=== PATIENT | male | born 1980 | race Caucasian/White ===

== ENCOUNTER 2017-08-08 20:29 | Emergency (ER) | payer BC, SELFPAY ==
[2017-08-08 21:09] VITALS: BP 129/70; PULSE 74; RESP 20; TEMP 36.6; O2SAT 98; BMI 49.1
--- NOTE | 2017-08-08 21:13 | HMH.EDUTC ---
[facility] [place] Impression: Gastroenteritis Disposition: Home, Self-Care Condition on Discharge: Good Instructions: Viral Gastroenteritis, DI for Viral Gastroenteritis -- Adult Additional Instructions: ? Drink extra fluids with and between meals. If you have difficulty drinking, try very small amounts of water or suck on ice chips. ? Avoid fruit juices, as these do not replace minerals and can actually increase diarrhea. ? Children and adults can use sports drinks to replenish electrolytes. Younger children and infants should use products formulated for children, like oral rehydration solutions. ? Eat food in small amounts and let your stomach recover. ? Get lots of rest. You may feel tired or weak. ? Check with your doctor before taking medications or giving them to children. Never give aspirin to children or teenagers with a viral illness. This can cause Michele syndrome, a potentially life-threatening condition. Prescriptions: Ondansetron [Zofran 4mg ODT] 4 mg PO Q8H #20 tab.rapdis Medical Decision Making Vital Signs: 08/08/17 21:09 Temperature 97.8 F Temperature Source Temporal Artery Scan Pulse Rate [Brachial] 74 Respiratory Rate 20 Blood Pressure [Left Arm] 129/70 Blood Pressure Mean [Left Arm] 89 Blood Pressure Source [Left Arm] Automatic Cuff Blood Pressure Position [Left Arm] Sitting 02 Sat by Pulse Oximetry 98 Oxygen Delivery Method Room Air - Ramirez Inquiry Pt receiving controlled substance: No Ramirez was queried for this patient: No [facility] [place] - General Stated complaint: vomiting, diarrhea Mode of Arrival: Ambulatory Source of Information: Patient Limitations: No Limitations Description of Symptoms (Recalled from Triage Doc. by RN): FLU SYMPTOMS AND DIARRHEA HEENT Symptoms (Recalled from RN notes): Yes Resp Symptoms (Recalled from RN notes): No Skin Symptoms (Recalled from RN notes): No MS Symptoms (Recalled from RN notes): No Functional Status (Recalled from RN notes): NA - History of Present Illness Provider Complaint: Patient state that he began having nausea and vomiting States that he feels like he may be running a low grade fever States that as the day day went on state that his symptoms did not improve State that several people at work has been out with the flu and stomach virus States that he has had several eppisodes of nausea and vomiting but not having abdominal pain - Related Data Home Medications Medication Instructions Recorded Confirmed Gabapentin [Gabapentin 300mg Cap] 300 mg PO TID 08/08/17 08/08/17 Previous Rx's Medication Instructions Recorded Ondansetron [Zofran 4mg ODT] 4 mg PO Q8H #20 tab.[email or web address] 08/08/17 Allergies Allergy/AdvReac Type Severity Reaction Status Date / Time NSAIDS (Non-Steroidal Allergy Intermediate Verified 08/08/17 21:13 Anti-Inflamma [NSAIDS (NON-STEROIDAL ANTI-INFLAMMA] - Worker's Comp Is this a Worker's Comp case?: No [facility] History I have reviewed the patient's past medical history: Yes Laterality Cases: Right: Total Knee Replacement, Bilateral: Other - *Social History Smoking Status: Never smoker Alcohol Intake: never - Psychiatric History Expresses thoughts of harming self/others: None Suicide Plan Description: No Plan ROS Obtained: Yes All systems reviewed & no additional complaints Physical Exam - General General appearance: alert, in no apparent distress - ENT ENT exam: Present: normal exam, normal oropharynx, mucous membranes moist, TM's normal bilaterally, normal external ear exam - Respiratory Respiratory exam: Present: normal lung sounds bilaterally. Absent: respiratory distress - Cardiovascular Cardiovascular exam: Present: regular rate, normal rhythm. Absent: JVD - Abdominal Exam Abdominal exam: Present: soft. Absent: distention, tenderness, guarding, rebound - Neurological Exam Neurological exam: Present: alert, oriented X3
--- NOTE | 2017-08-08 21:21 | ED_ITS ---
[facility] [place] Clinical Impression: Gastroenteritis Disposition: Home, Self-Care Condition on Discharge: Good Instructions: Viral Gastroenteritis, DI for Viral Gastroenteritis -- Adult Additional Instructions: ? Drink extra fluids with and between meals. If you have difficulty drinking, try very small amounts of water or suck on ice chips. ? Avoid fruit juices, as these do not replace minerals and can actually increase diarrhea. ? Children and adults can use sports drinks to replenish electrolytes. Younger children and infants should use products formulated for children, like oral rehydration solutions. ? Eat food in small amounts and let your stomach recover. ? Get lots of rest. You may feel tired or weak. ? Check with your doctor before taking medications or giving them to children. Never give aspirin to children or teenagers with a viral illness. This can cause Yodit?s syndrome, a potentially life-threatening condition. Prescriptions: Ondansetron [Zofran 4mg ODT] 4 mg PO Q8H #20 tab.rapdis Medical Decision Making Vital Signs: 08/08/17 21:09 Temperature 97.8 F Temperature Source Temporal Artery Scan Pulse Rate [Brachial] 74 Respiratory Rate 20 Blood Pressure [Left Arm] 129/70 Blood Pressure Mean [Left Arm] 89 Blood Pressure Source [Left Arm] Automatic Cuff Blood Pressure Position [Left Arm] Sitting 02 Sat by Pulse Oximetry 98 Oxygen Delivery Method Room Air - Ramirez Inquiry Pt receiving controlled substance: No Ramirez was queried for this patient: No [facility] [place] - General Stated complaint: vomiting, diarrhea Mode of Arrival: Ambulatory Source of Information: Patient Limitations: No Limitations Description of Symptoms (Recalled from Triage Doc. by RN): FLU SYMPTOMS AND DIARRHEA HEENT Symptoms (Recalled from RN notes): Yes Resp Symptoms (Recalled from RN notes): No Skin Symptoms (Recalled from RN notes): No MS Symptoms (Recalled from RN notes): No Functional Status (Recalled from RN notes): NA - History of Present Illness Provider Complaint: Patient state that he began having nausea and vomiting States that he feels like he may be running a low grade fever States that as the day day went on state that his symptoms did not improve State that several people at work has been out with the flu and stomach virus States that he has had several eppisodes of nausea and vomiting but not having abdominal pain - Related Data Home Medications Medication Instructions Recorded Confirmed Gabapentin [Gabapentin 300mg Cap] 300 mg PO TID 08/08/17 08/08/17 Previous Rx's Medication Instructions Recorded Ondansetron [Zofran 4mg ODT] 4 mg PO Q8H #20 tab.rapdis 08/08/17 Allergies Allergy/AdvReac Type Severity Reaction Status Date / Time NSAIDS (Non-Steroidal Allergy Intermediate Verified 08/08/17 21:13 Anti-Inflamma [NSAIDS (NON-STEROIDAL ANTI-INFLAMMA] - Worker's Comp Is this a Worker's Comp case?: No [facility] History I have reviewed the patient's past medical history: Yes Laterality Cases: Right: Total Knee Replacement, Bilateral: Other - *Social History Smoking Status: Never smoker Alcohol Intake: never - Psychiatric History Expresses thoughts of harming self/others: None Suicide Plan Description: No Plan ROS Obtained: Yes All systems reviewed & no additional complaints
[2017-08-13 15:44] LABS: UTC Influenza A Antigen Negative (Negative); UTC Influenza B Antigen Negative (Negative)
== END 2017-08-08 21:32 | disposition home or self-care (01) ==
PROVIDERS: Emergency Provider Nurse Practitioner; Family Provider Emergency Medicine
DX: K52.9 Noninfective gastroenteritis and colitis, unspecified (principal)
CPT/HCPCS: 87804; 99202

== ENCOUNTER → 2017-10-17 14:32 | Outpatient (REF) | payer BC, SELFPAY ==
[2017-10-17 20:17] LABS: Amphetamine/Metha Screen,Urine Negative ng/mL (<1000); Barbiturates Screen,Urine Negative ng/mL (<200); Benzodiazepines Screen,Urine Negative ng/mL (200); Cannabinoid Screen,Urine Negative ng/mL (<50); Cocaine Screen,Urine Negative ng/g (<300); Methadone Screen,Urine Negative ng/mL (<300); Opiate Screen,Urine Negative ng/mL (<300); Phencyclidine Screen,Urine Negative ng/mL (<25)
== END ==
LOC: LAB 14:32
PROVIDERS: Visit Provider Nurse Practitioner Family
DX: Z79.899 Other long term (current) drug therapy (principal)
CPT/HCPCS: 80305

== ENCOUNTER → 2017-12-03 12:04 | Outpatient (CLI) | payer BC, SELFPAY ==
--- NOTE | 2017-12-03 12:07 | CA_ITS ---
PROCEDURE: 2-D M-mode and color Doppler study INDICATIONS FOR THE TEST: Chest pain X COPD Heart Murmur Tobacco SmokingX Palpitations Fatigue Syncope Edema Hypertension Diabetes Mellitus Rheumatic Fever SOB SILVA ObesityXHyperlipidemia Family History HD Additional History PATIENT INFORMATION HEIGHT: 66 WEIGHT:316 GENDER: Male B/P:140/76 2-D/M-MODE INTERPRETATION: 2-D MEASUREMENTS OBSERVED VALUES IN CMS Right Ventricular Dimension (RVDd) 1.7 Interventricular Septum (Thickness)(IVsd) 1.0 Left Ventricular Internal Dimensions(LVIDd) 5.7 Left Ventricular Posterior Wall (Thickness)(LVPWd) 1.0 Aortic Root 3.1 Aortic Cusp Separation 2.4 Left Atrial Dimensions (LAD) 2.8 2D 1. Left atrium is normal size, left ventricle is normal size, visually estimated ejection fraction 55% with no obvious regional wall motion abnormality. 2. The right atrium and right ventricle are normal size and contractility. 3. The aortic, mitral and tricuspid valvular grossly normal. 4. The pulmonic valve is poorly visualized. 5. No significant pericardial effusion noted. DOPPLER INTERROGATION: Doppler interrogation of the aortic, mitral and tricuspid valvular presence of mild mitral and tricuspid regurgitation, tricuspid and jet velocity insufficient for calculation of the right ventricular systolic pressure, diastolic parameters are within normal range. CONCLUSION: 1. Normal left ventricular size, visually estimated ejection fraction 55% with no obvious regional wall motion abnormality, diastolic parameters are within normal range. 2. Mild mitral and tricuspid regurgitation 3. No significant pericardial effusion noted.
--- NOTE | 2017-12-03 12:07 | NM_ITS ---
History and Indications: Full obesity, tobacco use, family history, chest pain, shortness of breath, palpitations, syncope and fatigue. Procedure: A she received a 0.4 mg of Lexiscan, resting heart rate was 61 bpm, resting blood pressure 130/64, with Lexiscan maximum heart rate achieved was 74 bpm which is less than 85% of the maximum predicted heart rate and a blood pressure was 115/62. With Lexiscan patient complained of mild shortness of breath. Electrocardiogram: Resting electrocardiogram showed sinus rhythm, with Lexiscan there is less than 1.[address] segment depression noted from the baseline EKG. The EKG portion of the Lexiscan Myoview is nondiagnostic. Cardiac stress and resting SPECT images: Cardiac stress and resting SPECT images were obtained using technetium 99 Myoview 30.6 mCi at stress and 9.1 mCi at rest, gated SPECT further analysis of segmental wall motion and calculation of the ejection fraction also done. Cardiac stress and resting SPECT images show uniform myocardial activity without any segmental perfusion abnormality, computer derived ejection fraction is 59% with no obvious regional wall motion abnormality, right ventricle is normal size and contractility. Conclusion: 1. The EKG portion of the Lexiscan Myoview is nondiagnostic. 2. No obvious scintigraphic evidence of reversible ischemia seen, computer derived ejection fraction is 59% with no obvious regional wall motion abnormality, right ventricle is normal size and contractility. 3. Normal Lexiscan Myoview study.
--- NOTE | 2017-12-03 12:47 | HMH.ITSHM ---
PROTONIX NEURONTIN LEXAPRO
== END ==
LOC: RAD 12:07
PROVIDERS: Family Provider Emergency Medicine; PCP Emergency Medicine; Visit Provider Emergency Medicine
DX: R07.9 Chest pain, unspecified (principal)
CPT/HCPCS: 78452; 93017; 93306; A9502; J2785